=== PATIENT | male | born 1960 | race Caucasian/White ===

== ENCOUNTER 2017-10-31 11:33 | Inpatient (IN) | payer OTHER ==
[2017-10-31] MEDS ORDERED: CEFAZOLIN 1 GM/50 ML (PMX) 50 ML IVPB (13:30)
[2017-10-31] MEDS ORDERED: BUPIVACAINE 0.75%/DEXT (SPINAL) 2 ML INJ (16:26)
[2017-10-31] MEDS ORDERED: DIPHENHYDRAMINE 50 MG INJ IV (16:30)
[2017-10-31] MEDS ORDERED: ONDANSETRON 4 MG INJ IV (16:30)
[2017-10-31] MEDS ORDERED: METOCLOPRAMIDE 10 MG INJ IV (16:30)
[2017-10-31] MEDS ORDERED: HYDROmorphONE 1 MG/5 ML IV SYRINGE IV ×2 (16:30)
[2017-10-31] MEDS ORDERED: MEPERIDINE 25 MG INJ IV (16:30)
[2017-10-31] MEDS ORDERED: FENTAnyl 50 MCG/ML VIAL IV ×2 (16:30)
[2017-10-31] MEDS ORDERED: ALBUTEROL 0.083% (NEB) 2.5 MG/3 ML AMP HHN (16:30)
[2017-10-31] MEDS ORDERED: PHENYLephrine (100 MCG/ML) 5ML SYG (16:46)
[2017-10-31] MEDS ORDERED: CEFAZOLIN 1 GM INJ (16:51)
[2017-10-31] MEDS ORDERED: PROPOFOL 20 ML (16:51)
[2017-10-31] MEDS ORDERED: LIDOCAINE 100 MG SYRINGE (16:51)
[2017-10-31] MEDS ORDERED: SUGAMMADEX SODIUM 200 MG/2 ML VIAL IV (16:51)
[2017-10-31] MEDS ORDERED: SUCCINYLCHOLINE CHLORIDE 100 MG/5 ML SYG IV (16:51)
[2017-10-31] MEDS ORDERED: ROCURONIUM 50 MG INJ (16:51)
[2017-10-31] MEDS ORDERED: MIDAZOLAM 1 MG/ML 2 ML INJ (16:52)
[2017-10-31] MEDS: POLYMYXIN/BACITRACIN 1L IRRIG (17:15)
[2017-10-31] MEDS: DEXTROSE 5%-LR 1,000 ML IV (19:30)
[2017-10-31] MEDS: HYDROmorphONE 1 MG/5 ML IV SYRINGE IV (19:41)
[2017-10-31] MEDS: HYDROmorphONE 1 MG/ML SYG IV (22:09)
[2017-10-31 22:49] LABS: HEMATOCRIT 41.4 % (42.0-52.0)
[2017-10-31 23:11] LABS: ANION GAP 9 (8-16); BLOOD UREA NITROGEN 11 mg/dl (7-20); CALCIUM 8.2 mg/dl (8.4-10.2); CARBON DIOXIDE 28 mmol/L (21-31); CHLORIDE 104 mmol/L (97-110); CREATININE 0.59 mg/dl (0.61-1.24); GLUCOSE 138 mg/dl (70-220); POTASSIUM 3.9 mmol/L (3.5-5.1); SODIUM 137 mmol/L (135-144)
[2017-10-31] MEDS: CEFAZOLIN 1 GM/50 ML (PMX) 50 ML IVPB (23:17)
[2017-11-01] MEDS: HYDROmorphONE 1 MG/ML SYG IV ×5 (00:40→15:07)
[2017-11-01] MEDS: DEXTROSE 5%-LR 1,000 ML IV ×4 (02:47→18:53)
[2017-11-01] MEDS: CEFAZOLIN 1 GM/50 ML (PMX) 50 ML IVPB ×3 (06:08→22:35)
[2017-11-01 06:15] LABS: ADD MAN DIFF? NO
[2017-11-01 06:22] LABS: BASOPHILS % 0.2 % (0.0-2.0); HEMATOCRIT 36.8 % (42.0-52.0); HEMOGLOBIN 12.6 g/dl (14.0-18.0); LYMPHOCYTES # 1.2 10^3/ul (0.8-2.9); LYMPHOCYTES % 10.4 % (15.0-51.0); MEAN CORPUSCULAR HEMOGLOBIN 30.5 pg (29.0-33.0); MEAN CORPUSCULAR HGB CONC 34.2 g/dl (32.0-37.0); MEAN CORPUSCULAR VOLUME 89.1 fl (82.0-101.0); MEAN PLATELET VOLUME 9.9 fl (7.4-10.4); MONOCYTE # 0.5 10^3/ul (0.3-0.9); MONOCYTES % 4.2 % (0.0-11.0); NEUTROPHIL # 9.6 10^3/ul (1.6-7.5); NEUTROPHILS % 84.8 % (39.0-77.0); PLATELET COUNT 183 10^3/UL (140-415); RED BLOOD COUNT 4.13 10^6/ul (4.70-6.10); RED CELL DISTRIBUTION WIDTH 12.1 % (11.5-14.5)
[2017-11-01 06:22] LABS: WHITE BLOOD COUNT 11.4 10^3/ul (4.8-10.8)
[2017-11-01 06:49] LABS: ANION GAP 13 (8-16); BLOOD UREA NITROGEN 12 mg/dl (7-20); CALCIUM 7.9 mg/dl (8.4-10.2); CARBON DIOXIDE 26 mmol/L (21-31); CHLORIDE 101 mmol/L (97-110); CREATININE 0.66 mg/dl (0.61-1.24); GLUCOSE 192 mg/dl (70-220); SODIUM 136 mmol/L (135-144)
[2017-11-01] MEDS: ONDANSETRON 4 MG INJ IV (07:54)
[2017-11-01] MEDS: HYDROCODONE/APAP (5/325) TAB GTB ×2 (10:24→18:31)
[2017-11-01] MEDS: KETOROLAC 30 MG INJ IV (14:00)
[2017-11-01] MEDS: SOD CHLORIDE 0.9% 1,000 ML IV (20:48)
[2017-11-01] MEDS: CALCIUM CARBONATE 1.25 GM TAB PO (20:48)
[2017-11-01] MEDS: ACETAMINOPHEN 325 MG TAB PO (22:35)
[2017-11-02] MEDS: CEFAZOLIN 1 GM/50 ML (PMX) 50 ML IVPB ×2 (05:56→13:16)
[2017-11-02] MEDS: KETOROLAC 30 MG INJ IV (07:33)
[2017-11-02] MEDS: CALCIUM CARBONATE 1.25 GM TAB PO ×2 (08:37→20:41)
[2017-11-02 09:04] LABS: ADD MAN DIFF? NO
[2017-11-02 09:07] LABS: BASOPHILS % 0.3 % (0.0-2.0); EOSINOPHILS % 0.2 % (0.0-7.0); HEMATOCRIT 36.3 % (42.0-52.0); HEMOGLOBIN 12.5 g/dl (14.0-18.0); LYMPHOCYTES # 1.6 10^3/ul (0.8-2.9); LYMPHOCYTES % 12.2 % (15.0-51.0); MEAN CORPUSCULAR HEMOGLOBIN 30.5 pg (29.0-33.0); MEAN CORPUSCULAR HGB CONC 34.4 g/dl (32.0-37.0); MEAN CORPUSCULAR VOLUME 88.5 fl (82.0-101.0); MONOCYTE # 0.8 10^3/ul (0.3-0.9); MONOCYTES % 6.2 % (0.0-11.0); NEUTROPHIL # 10.4 10^3/ul (1.6-7.5); NEUTROPHILS % 80.1 % (39.0-77.0); PLATELET COUNT 157 10^3/UL (140-415); RED CELL DISTRIBUTION WIDTH 12.3 % (11.5-14.5)
[2017-11-02 09:42] LABS: ANION GAP 11 (8-16); BLOOD UREA NITROGEN 7 mg/dl (7-20); CALCIUM 8.4 mg/dl (8.4-10.2); CARBON DIOXIDE 23 mmol/L (21-31); CHLORIDE 103 mmol/L (97-110); CREATININE 0.56 mg/dl (0.61-1.24); GLUCOSE 157 mg/dl (70-220); POTASSIUM 3.8 mmol/L (3.5-5.1); SODIUM 133 mmol/L (135-144)
[2017-11-02] MEDS ORDERED: LORAZEPAM 1 MG TAB PO (11:30)
[2017-11-02] MEDS: PANTOPRAZOLE (EC) 40 MG TAB PO (11:56)
[2017-11-02] MEDS ORDERED: VANCOMYCIN IV PER PHARMACY XX (15:30)
[2017-11-02] MEDS: ACETAMINOPHEN 325 MG TAB PO (15:39)
[2017-11-02] MEDS: CEFTRIAXONE 1 GM/50 ML (PMX) 50 ML IVPB (16:02)
[2017-11-02] MEDS: VANCOMYCIN 1.5 GM in SOD CHLORIDE 0.9% 250 ML IVPB (18:14)
[2017-11-02 19:44] LABS: ADD UMIC NO; UR ASCORBIC ACID NEGATIVE (NEGATIVE); UR BILIRUBIN (Dip) NEGATIVE (NEGATIVE); UR BLOOD (Dip) NEGATIVE (NEGATIVE); UR CLARITY CLEAR (CLEAR); UR COLOR YELLOW (YELLOW); UR GLUCOSE (Dip) 1+ mg/dL (NEGATIVE); UR KETONES (Dip) NEGATIVE (NEGATIVE); UR LEUKOCYTE ESTERASE (Dip) NEGATIVE Leu/ul (NEGATIVE); UR NITRITE (Dip) NEGATIVE (NEGATIVE); UR SPECIFIC GRAVITY (Dip) 1.014 (1.003-1.030); UR TOTAL PROTEIN (Dip) NEGATIVE (NEGATIVE); UR UROBILINOGEN (Dip) 1+ mg/dL (NEGATIVE)
[2017-11-03] MEDS: VANCOMYCIN 1.25 GM in SOD CHLORIDE 0.9% 250 ML IVPB ×2 (05:46→17:18)
[2017-11-03 06:05] LABS: ADD MAN DIFF? NO
[2017-11-03 06:12] LABS: BASOPHIL # 0.1 10^3/ul (0.0-0.1); BASOPHILS % 0.5 % (0.0-2.0); EOSINOPHILS # 0.1 10^3/ul (0.0-0.5); EOSINOPHILS % 0.5 % (0.0-7.0); HEMATOCRIT 33.6 % (42.0-52.0); HEMOGLOBIN 11.4 g/dl (14.0-18.0); LYMPHOCYTES % 16.4 % (15.0-51.0); MEAN CORPUSCULAR HEMOGLOBIN 30.2 pg (29.0-33.0); MEAN CORPUSCULAR HGB CONC 33.9 g/dl (32.0-37.0); MEAN CORPUSCULAR VOLUME 88.9 fl (82.0-101.0); MEAN PLATELET VOLUME 9.8 fl (7.4-10.4); MONOCYTE # 0.9 10^3/ul (0.3-0.9); MONOCYTES % 7.5 % (0.0-11.0); NEUTROPHIL # 8.8 10^3/ul (1.6-7.5); NEUTROPHILS % 74.3 % (39.0-77.0); PLATELET COUNT 159 10^3/UL (140-415); RED BLOOD COUNT 3.78 10^6/ul (4.70-6.10); RED CELL DISTRIBUTION WIDTH 12.4 % (11.5-14.5)
[2017-11-03 06:12] LABS: WHITE BLOOD COUNT 11.9 10^3/ul (4.8-10.8)
[2017-11-03 06:56] LABS: ANION GAP 12 (8-16); BLOOD UREA NITROGEN 10 mg/dl (7-20); CALCIUM 8.2 mg/dl (8.4-10.2); CARBON DIOXIDE 26 mmol/L (21-31); CHLORIDE 101 mmol/L (97-110); CREATININE 0.64 mg/dl (0.61-1.24); GLUCOSE 153 mg/dl (70-220); POTASSIUM 3.9 mmol/L (3.5-5.1); SODIUM 135 mmol/L (135-144)
[2017-11-03] MEDS: PANTOPRAZOLE (EC) 40 MG TAB PO (08:16)
[2017-11-03] MEDS: CALCIUM CARBONATE 1.25 GM TAB PO ×2 (08:16→20:32)
[2017-11-03] MEDS: HYDROmorphONE 1 MG/ML SYG IV (08:16)
[2017-11-03] MEDS: ASPIRIN 325 MG TAB PO (10:26)
[2017-11-03] MEDS: CEFTRIAXONE 1 GM/50 ML (PMX) 50 ML IVPB (16:23)
[2017-11-03] MEDS: DOCUSATE SODIUM 100 MG CAP PO ×2 (18:33→20:32)
[2017-11-03] MEDS: POLYETHYLENE GLYCOL 17 GM PACKET PO (20:32)
[2017-11-03] MEDS: HYDROCODONE/APAP (5/325) TAB GTB (20:36)
[2017-11-03] MEDS ORDERED: CEFTRIAXONE 1 GM/50 ML (PMX) 50 ML IVPB (22:00)
[2017-11-03 22:33] LABS: HEMOGLOBIN A1C 6.3 % (0-5.9)
[2017-11-03 22:43] LABS: URIC ACID 4.4 mg/dl (3.1-7.9)
[2017-11-04] MEDS: HYDROmorphONE 1 MG/ML SYG IV ×3 (00:57→16:42)
[2017-11-04 05:08] LABS: ADD MAN DIFF? NO; BASOPHILS % 0.5 % (0.0-2.0); EOSINOPHILS # 0.2 10^3/ul (0.0-0.5); EOSINOPHILS % 1.8 % (0.0-7.0); HEMATOCRIT 31.7 % (42.0-52.0); HEMOGLOBIN 10.7 g/dl (14.0-18.0); LYMPHOCYTES # 2.5 10^3/ul (0.8-2.9); LYMPHOCYTES % 29.2 % (15.0-51.0); MEAN CORPUSCULAR HEMOGLOBIN 30.6 pg (29.0-33.0); MEAN CORPUSCULAR HGB CONC 33.8 g/dl (32.0-37.0); MEAN CORPUSCULAR VOLUME 90.6 fl (82.0-101.0); MEAN PLATELET VOLUME 10.4 fl (7.4-10.4); MONOCYTE # 0.7 10^3/ul (0.3-0.9); MONOCYTES % 7.6 % (0.0-11.0); NEUTROPHIL # 5.2 10^3/ul (1.6-7.5); NEUTROPHILS % 60.2 % (39.0-77.0); PLATELET COUNT 162 10^3/UL (140-415); RED CELL DISTRIBUTION WIDTH 12.7 % (11.5-14.5)
[2017-11-04 05:08] LABS: WHITE BLOOD COUNT 8.6 10^3/ul (4.8-10.8)
[2017-11-04 05:44] LABS: ANION GAP 11 (8-16); BLOOD UREA NITROGEN 15 mg/dl (7-20); CALCIUM 8.2 mg/dl (8.4-10.2); CARBON DIOXIDE 25 mmol/L (21-31); CHLORIDE 104 mmol/L (97-110); CREATININE 0.63 mg/dl (0.61-1.24); GLUCOSE 129 mg/dl (70-220); POTASSIUM 3.8 mmol/L (3.5-5.1); SODIUM 136 mmol/L (135-144)
[2017-11-04 05:50] LABS: VANCOMYCIN,TROUGH 5.3 ug/ml (10.0-20.0)
[2017-11-04] MEDS: VANCOMYCIN 1.25 GM in SOD CHLORIDE 0.9% 250 ML IVPB ×3 (06:11→21:01)
[2017-11-04] MEDS: CALCIUM CARBONATE 1.25 GM TAB PO ×2 (08:13→20:30)
[2017-11-04] MEDS: ASPIRIN 325 MG TAB PO (08:13)
[2017-11-04] MEDS: PANTOPRAZOLE (EC) 40 MG TAB PO (08:13)
[2017-11-04] MEDS: POLYETHYLENE GLYCOL 17 GM PACKET PO (11:09)
[2017-11-04] MEDS: DOCUSATE SODIUM 100 MG CAP PO (11:09)
[2017-11-04] MEDS: HYDROCODONE/APAP (5/325) TAB PO (14:49)
[2017-11-04] MEDS: CEFTRIAXONE 1 GM/50 ML (PMX) 50 ML IVPB (16:42)
[2017-11-04] MEDS: HYDROCODONE/APAP (10/325) TAB PO (20:30)
[2017-11-05] MEDS: HYDROmorphONE 1 MG/ML SYG IV ×2 (04:40→11:15)
[2017-11-05 05:24] LABS: ADD MAN DIFF? NO
[2017-11-05 05:29] LABS: BASOPHILS % 0.4 % (0.0-2.0); EOSINOPHILS # 0.2 10^3/ul (0.0-0.5); EOSINOPHILS % 1.8 % (0.0-7.0); HEMATOCRIT 33.6 % (42.0-52.0); HEMOGLOBIN 11.2 g/dl (14.0-18.0); LYMPHOCYTES # 2.2 10^3/ul (0.8-2.9); LYMPHOCYTES % 23.1 % (15.0-51.0); MEAN CORPUSCULAR HEMOGLOBIN 30.6 pg (29.0-33.0); MEAN CORPUSCULAR HGB CONC 33.3 g/dl (32.0-37.0); MEAN CORPUSCULAR VOLUME 91.8 fl (82.0-101.0); MEAN PLATELET VOLUME 10.2 fl (7.4-10.4); MONOCYTE # 0.7 10^3/ul (0.3-0.9); MONOCYTES % 7.5 % (0.0-11.0); NEUTROPHIL # 6.3 10^3/ul (1.6-7.5); NEUTROPHILS % 66.5 % (39.0-77.0); NUCLEATED RED BLOOD CELLS% 0.2 /100WBC (0.0-0.0); PLATELET COUNT 203 10^3/UL (140-415); RED BLOOD COUNT 3.66 10^6/ul (4.70-6.10); RED CELL DISTRIBUTION WIDTH 12.6 % (11.5-14.5)
[2017-11-05 05:29] LABS: WHITE BLOOD COUNT 9.5 10^3/ul (4.8-10.8)
[2017-11-05 05:57] LABS: VANCOMYCIN,TROUGH 11.8 ug/ml (10.0-20.0)
[2017-11-05 06:00] LABS: ANION GAP 12 (8-16); BLOOD UREA NITROGEN 12 mg/dl (7-20); CALCIUM 8.5 mg/dl (8.4-10.2); CARBON DIOXIDE 29 mmol/L (21-31); CHLORIDE 99 mmol/L (97-110); CREATININE 0.63 mg/dl (0.61-1.24); GLUCOSE 124 mg/dl (70-220); POTASSIUM 4.4 mmol/L (3.5-5.1); SODIUM 136 mmol/L (135-144)
[2017-11-05] MEDS: VANCOMYCIN 1.25 GM in SOD CHLORIDE 0.9% 250 ML IVPB (06:22)
[2017-11-05] MEDS: PANTOPRAZOLE (EC) 40 MG TAB PO (08:41)
[2017-11-05] MEDS: HYDROCODONE/APAP (10/325) TAB PO ×2 (08:41→20:09)
[2017-11-05] MEDS: CALCIUM CARBONATE 1.25 GM TAB PO ×2 (08:41→20:09)
[2017-11-05] MEDS: ASPIRIN 325 MG TAB PO (08:41)
[2017-11-05] MEDS: DOCUSATE SODIUM 100 MG CAP PO (20:08)
[2017-11-06] MEDS: HYDROmorphONE 1 MG/ML SYG IV (02:59)
[2017-11-06 07:48] LABS: ADD MAN DIFF? NO
[2017-11-06 07:53] LABS: BASOPHIL # 0.1 10^3/ul (0.0-0.1); BASOPHILS % 0.6 % (0.0-2.0); EOSINOPHILS # 0.1 10^3/ul (0.0-0.5); EOSINOPHILS % 1.3 % (0.0-7.0); HEMATOCRIT 34.7 % (42.0-52.0); HEMOGLOBIN 11.4 g/dl (14.0-18.0); LYMPHOCYTES # 2.1 10^3/ul (0.8-2.9); LYMPHOCYTES % 20.7 % (15.0-51.0); MEAN CORPUSCULAR HEMOGLOBIN 29.7 pg (29.0-33.0); MEAN CORPUSCULAR HGB CONC 32.9 g/dl (32.0-37.0); MEAN CORPUSCULAR VOLUME 90.4 fl (82.0-101.0); MONOCYTE # 0.8 10^3/ul (0.3-0.9); MONOCYTES % 7.4 % (0.0-11.0); NEUTROPHILS % 68.6 % (39.0-77.0); PLATELET COUNT 239 10^3/UL (140-415); RED BLOOD COUNT 3.84 10^6/ul (4.70-6.10); RED CELL DISTRIBUTION WIDTH 12.7 % (11.5-14.5)
[2017-11-06 07:53] LABS: WHITE BLOOD COUNT 10.2 10^3/ul (4.8-10.8)
[2017-11-06] MEDS: ASPIRIN 325 MG TAB PO (08:15)
[2017-11-06] MEDS: HYDROCODONE/APAP (10/325) TAB PO ×2 (08:16→17:09)
[2017-11-06] MEDS: CALCIUM CARBONATE 1.25 GM TAB PO (08:16)
[2017-11-06] MEDS: PANTOPRAZOLE (EC) 40 MG TAB PO (08:16)
[2017-11-06 08:27] LABS: ANION GAP 14 (8-16); BLOOD UREA NITROGEN 16 mg/dl (7-20); CALCIUM 8.6 mg/dl (8.4-10.2); CARBON DIOXIDE 29 mmol/L (21-31); CHLORIDE 97 mmol/L (97-110); CREATININE 0.68 mg/dl (0.61-1.24); GLUCOSE 120 mg/dl (70-220); POTASSIUM 4.1 mmol/L (3.5-5.1); SODIUM 136 mmol/L (135-144)
[2017-11-06] MEDS ORDERED: LACTULOSE 30ML CUP NGT (15:00)
[2017-11-06] MEDS ORDERED: HYDROmorphONE 2 MG TAB PO (16:30)
[2017-11-06 18:07] LABS: PTH CALCIUM 7.9 mg/dL (8.6-10.3)
[2017-11-07] MEDS ORDERED: PANTOPRAZOLE (EC) 40 MG TAB PO (06:30)
[2017-11-07 08:07] LABS: PTH INTACT 63 pg/mL (14-64)
== END 2017-11-06 19:35 | DRG 470 ==
LOC: REC 11:33 → 2NE 22:00
PROC: 0SRD0J9 Replacement of Left Knee Joint with Synthetic Substitute, Cemented, Open Approach (ICD-10-PCS; principal; 2017-10-31 15:30)
DX: M17.12 Unilateral primary osteoarthritis, left knee (principal); L03.116 Cellulitis of left lower limb; R00.0 Tachycardia, unspecified; E66.9 Obesity, unspecified; Z68.29 Body mass index [BMI] 29.0-29.9, adult; F41.9 Anxiety disorder, unspecified; E83.51 Hypocalcemia; R73.03 Prediabetes; R50.9 Fever, unspecified
CPT/HCPCS: 71045; 73560; 80048; 80202; 81003; 83036; 83970; 84560; 85014; 85018; 85025; 87040; 88304; 88311; 93005; 93971; 97110; 97116; 97162; 97530

== ENCOUNTER 2017-11-20 14:16 | Emergency (ER) | payer OTHER ==
[2017-11-20 15:17] LABS: ADD MAN DIFF? NO
[2017-11-20 15:34] LABS: WHITE BLOOD COUNT 7.7 10^3/ul (4.8-10.8)
[2017-11-20 15:34] LABS: BASOPHILS % 0.4 % (0.0-2.0); EOSINOPHILS # 0.1 10^3/ul (0.0-0.5); EOSINOPHILS % 1.8 % (0.0-7.0); HEMATOCRIT 38.4 % (42.0-52.0); HEMOGLOBIN 12.2 g/dl (14.0-18.0); LYMPHOCYTES # 1.9 10^3/ul (0.8-2.9); LYMPHOCYTES % 24.2 % (15.0-51.0); MEAN CORPUSCULAR HGB CONC 31.8 g/dl (32.0-37.0); MEAN CORPUSCULAR VOLUME 91.4 fl (82.0-101.0); MEAN PLATELET VOLUME 9.2 fl (7.4-10.4); MONOCYTE # 0.5 10^3/ul (0.3-0.9); MONOCYTES % 6.7 % (0.0-11.0); NEUTROPHIL # 5.1 10^3/ul (1.6-7.5); NEUTROPHILS % 66.5 % (39.0-77.0); PLATELET COUNT 456 10^3/UL (140-415)
[2017-11-20] MEDS: PIPER-TAZO 3.375 GM IV (PMX) 100 ML IVPB (15:46)
[2017-11-20] MEDS: KETOROLAC 30 MG INJ IV (15:48)
[2017-11-20] MEDS: HYDROCODONE/APAP (5/325) TAB PO (15:48)
[2017-11-20 15:51] LABS: LACTIC ACID 1.7 mmol/L (0.5-2.0)
[2017-11-20 15:53] LABS: ANION GAP 13 (8-16); BLOOD UREA NITROGEN 15 mg/dl (7-20); CALCIUM 8.9 mg/dl (8.4-10.2); CARBON DIOXIDE 28 mmol/L (21-31); CHLORIDE 101 mmol/L (97-110); CREATININE 0.72 mg/dl (0.61-1.24); GLUCOSE 127 mg/dl (70-220); POTASSIUM 4.3 mmol/L (3.5-5.1); SODIUM 138 mmol/L (135-144)
[2017-11-20 15:55] LABS: PROTIME 13.3 Sec (11.9-14.9)
[2017-11-20 15:56] LABS: PARTIAL THROMBOPLASTIN TIME 35.9 Sec (25.0-35.0)
[2017-11-20 16:04] LABS: TROPONIN-I < 0.012 ng/ml (0.000-0.120)
[2017-11-20] MEDS: VANCOMYCIN 1 GM (PMX) 250 ML IVPB (16:20)
[2017-11-20 17:05] LABS: ADD UMIC NO; UR ASCORBIC ACID NEGATIVE (NEGATIVE); UR BILIRUBIN (Dip) NEGATIVE (NEGATIVE); UR BLOOD (Dip) NEGATIVE (NEGATIVE); UR CLARITY CLEAR (CLEAR); UR COLOR YELLOW (YELLOW); UR GLUCOSE (Dip) NEGATIVE (NEGATIVE); UR KETONES (Dip) NEGATIVE (NEGATIVE); UR LEUKOCYTE ESTERASE (Dip) NEGATIVE Leu/ul (NEGATIVE); UR NITRITE (Dip) NEGATIVE (NEGATIVE); UR SPECIFIC GRAVITY (Dip) 1.013 (1.003-1.030); UR TOTAL PROTEIN (Dip) NEGATIVE (NEGATIVE); UR UROBILINOGEN (Dip) 1+ mg/dL (NEGATIVE)
== END 2017-11-20 21:50 | disposition home or self-care (01) ==
LOC: E/R 14:16
DX: M25.562 Pain in left knee (principal); M79.89 Other specified soft tissue disorders; R00.0 Tachycardia, unspecified; G89.18 Other acute postprocedural pain; Z79.82 Long term (current) use of aspirin
CPT/HCPCS: 36415; 71045; 73700; 80048; 81003; 83605; 84484; 85025; 85610; 85730; 87040; 87086; 93005; 93971; 96365; 96366; 96367; 96375; 99285-25